=== PATIENT | male | born 1950 | race African-American/Black ===

== ENCOUNTER 2017-11-27 09:11 | Inpatient (IN) | payer BC ==
[~2017-11-27] VITALS: Ht 167.6 cm; Wt 76.2 kg
[2017-11-27] MEDS ORDERED: KETOROLAC 30MG/ML VIAL IV STA (10:38)
[2017-11-27 11:07] LABS: BASOPHILS % 0.5 % (0.0-2.0); EOSINOPHILS % 2.3 % (0.0-5.0); HEMATOCRIT. 38.7 % (42.0-52.0); HEMOGLOBIN. 13.5 g/dL (14.0-18.0); LYMPHOCYTES % 34.8 % (20.0-50.0); MEAN CORPUSCULAR HEMOGLOBIN 30.3 pg (28.0-32.0); MEAN CORPUSCULAR VOLUME 86.9 fL (80.0-94.0); MEAN PLATELET VOLUME 9.7 fl (7.4-10.4); MONOCYTES % 8.1 % (2.0-8.0); NEUTROPHILS % 54.3 % (40.0-76.0); PLATELET 252 x1000/uL (130-400); RED BLOOD CELL COUNT 4.46 mill/uL (4.7-6.1); RED CELL DISTRIBUTION WIDTH 12.9 % (11.6-14.6)
[2017-11-27 11:20] LABS: CHLORIDE 105 mEq/L (98-107)
[2017-11-27 11:22] LABS: TROPONIN I 0.45 ng/mL (0.00-0.04)
[2017-11-27] MEDS ORDERED: ASPIRIN 325MG TABLET PO ONE (12:00)
[2017-11-27 12:22] LABS: INR 1.1; PARTIAL THROMBOPLASTIN TIME 25.6 sec (23.4-31.0); PROTHROMBIN TIME 11.1 sec (9.4-11.6)
[2017-11-27] MEDS ORDERED: NITROGLYCERIN 0.4MG TABLET SL SL ONE ×2 (12:45→14:15)
[2017-11-27] MEDS ORDERED: ENOXAPARIN 80MG/0.8ML SYR SUBCUT ONE (14:15)
[2017-11-27] MEDS ORDERED: NITROGLYCERIN OINT 1GM/INCH UDPKT TD ONE (14:15)
[2017-11-27] MEDS ORDERED: IOHEXOL-350 100 ML BOTTLE ONE (19:55)
[2017-11-27 22:40] VITALS: BP 111/69
[2017-11-27 22:54] LABS: CREATINE KINASE MB FRACTION 4.5 ng/mL (0.5-3.6)
[2017-11-27 22:57] LABS: TROPONIN I 0.56 ng/mL (0.00-0.04)
[2017-11-27 23:00] VITALS: BP 111/69
[2017-11-28] VITALS: BP 120/77
[2017-11-28] MEDS ORDERED: DEXTROSE 50% WATER 50ML SYRINGE IV PRN (00:15)
[2017-11-28] MEDS ORDERED: MORPHINE SULFATE 4 MG/ML CPJ (NOT FOR IM USE) IV PRN (00:15)
[2017-11-28] MEDS ORDERED: NON FORMULARY PATIENT HOME MED EA XX SCH (00:15)
[2017-11-28] MEDS ORDERED: METF500T4 PO (00:26)
[2017-11-28] MEDS ORDERED: ENOXAPARIN 100MG/ML SYR SUBCUT SCH (03:00)
[2017-11-28 04:00] VITALS: BP 111/70
[2017-11-28] MEDS: BLOOD SUGAR DIAGNOSTIC STRIP TEST SCH ×4 (05:30→20:20)
[2017-11-28] MEDS: NITROGLYCERIN OINT 1GM/INCH UDPKT TD SCH ×3 (06:27→17:53)
[2017-11-28] MEDS ORDERED: OMEPRAZOLE 20MG CAPSULE EXTENDED RELEASE PO SCH (06:45)
[2017-11-28] MEDS: INSULIN LISPRO 100 UNITS/ML SUBCUT SCH ×3 (07:18→17:15)
[2017-11-28 07:33] LABS: CREATINE KINASE MB FRACTION 3.5 ng/mL (0.5-3.6)
[2017-11-28 08:00] VITALS: BP 120/69
[2017-11-28 08:04] LABS: TROPONIN I 0.47 ng/mL (0.00-0.04)
[2017-11-28] MEDS: METFORMIN HCL 500MG TABLET PO SCH ×2 (08:55→17:52)
[2017-11-28] MEDS ORDERED: ASPIRIN 81MG TABLET PO SCH (09:00)
[2017-11-28 12:00] VITALS: BP 118/67
[2017-11-28 16:00] VITALS: BP 140/84
[2017-11-28 16:26] LABS: CREATINE KINASE MB FRACTION 2.1 ng/mL (0.5-3.6); TROPONIN I 0.38 ng/mL (0.00-0.04)
[2017-11-28] MEDS ORDERED: CELECOXIB 200MG CAPSULE PO SCH (18:00)
[2017-11-28 20:21] VITALS: BP 138/79
== END 2017-11-28 20:55 | disposition short-term general hospital (02) | DRG 313 ==
LOC: ER 09:11 → 5WST 13:24 → ENRESERV 20:14
PROVIDERS: ADMIT Internal Medicine Pulmonary Disease; ATTEND Internal Medicine Pulmonary Disease
DX: R07.89 Other chest pain (principal); D64.9 Anemia, unspecified; E11.9 Type 2 diabetes mellitus without complications; E78.00 Pure hypercholesterolemia, unspecified; I10 Essential (primary) hypertension; Z83.3 Family history of diabetes mellitus
CPT/HCPCS: 36415; 71045; 71275; 80053; 80061; 82550; 82553; 82962; 84484; 85025; 85610; 85730; 93005; 96372; 96374; 99285; J1650; J1815; J1885; J2270; Q9967